=== PATIENT | female | born 1990 | race Caucasian/White ===

== ENCOUNTER 2022-08-13 00:29 | Emergency (ER) | payer SELFPAY ==
[~2022-08-13] VITALS: Ht 167.6 cm; Wt 65.0 kg
[2022-08-13] MEDS ORDERED: ONDANSETRON HCL 4MG/2ML INJ IV STA (00:36)
[2022-08-13] MEDS ORDERED: SODIUM CHLORIDE 0.9% 1,000 ML IV ONE ×2 (00:45→05:15)
[2022-08-13 01:31] LABS: BASOPHILS % 0.6 % (0.0-2.0); EOSINOPHILS % 2.2 % (0.0-5.0); HEMATOCRIT. 40.4 % (36.0-48.0); HEMOGLOBIN. 13.7 g/dL (12.0-16.0); LYMPHOCYTES % 28.9 % (20.0-50.0); MEAN CORPUSCULAR HEMOGLOBIN 29.7 pg (28.0-32.0); MEAN CORPUSCULAR VOLUME 87.7 fL (81.0-99.0); MEAN PLATELET VOLUME 8.9 fl (7.4-10.4); MONOCYTES % 5.2 % (2.0-8.0); NEUTROPHILS % 63.1 % (40.0-76.0); PLATELET 276 x1000/uL (130-400); RED BLOOD CELL COUNT 4.61 mill/uL (4.2-5.4); RED CELL DISTRIBUTION WIDTH 14.4 % (11.6-14.6)
[2022-08-13 01:36] LABS: CHLORIDE 110 mEq/L (98-107)
[2022-08-13 01:37] LABS: HCG SCREEN NEGATIVE
[2022-08-13 01:49] LABS: ETHANOL BLOOD 279 mg/dL
[2022-08-13] MEDS ORDERED: ONDA4TAB50 MT (04:26)
[2022-08-13 05:30] VITALS: BP 96/62
== END 2022-08-13 05:32 | disposition home or self-care (01) ==
LOC: ER 00:29
DX: F10.129 Alcohol abuse with intoxication, unspecified (principal); Y90.8 Blood alcohol level of 240 mg/100 ml or more; R11.2 Nausea with vomiting, unspecified
CPT/HCPCS: 36415; 70450; 71045; 80053; 80307; 80320; 80329; 84703; 85025; 96361; 96374; 99285; J2405; J7030; Z7610; G0480